=== PATIENT | male | born 1950 | race Caucasian/White ===

== ENCOUNTER 2016-12-30 13:38 | Emergency (ER) | payer MEDICAID ==
--- NOTE | 2016-12-30 15:51 | Emergency Department Record ---
Anxiety - General Chief Complaint: Anxiety Stated Complaint: TIMO AND HAS ANXIETY Time Seen by Provider: 12/30/16 14:33 Source: Patient, RN notes reviewed Mode of Arrival: Wheelchair - History of Present Illness Initial Comments: sob and anxious and his brother yesterday and hr ran out of ativan and about one month ago and he took one pill about 3 days ago and he was able to sleep. Home oxygen at two liters per minutes. He has been using the albuterol/ Ipratropium about two times a day. No fever or chiles and coughing nonproductive. patient said pulmonary would not give him meds for anxiety and cancer said the same thine one week ago. Pulmonary Dr. Mays . Oncology Dr. Paulino Onset/Timin -: Week(s) Symptoms: Dyspnea Place: Home Previous History of Same: Yes Severity: Moderate Quality: Constant Provoking factors: Emotional stress, Recent /illness of family member Improves With: Nothing Worsens With: Nothing - Related Data Home Medications: Home Medications Medication Instructions Recorded Confirmed Last Taken Buspirone HCl 15 mg PO BID 09/20/16 12/30/16 12/30/16 Isosorbide Mononitrate [Imdur] 30 mg PO DAILY 09/20/16 12/30/16 12/30/16 Metoprolol Succinate [Toprol Xl] 25 mg PO DAILY 09/20/16 12/30/16 12/30/16 Previous Rx's Medication Instructions Recorded Albuterol Sulfate 0.083% [Neb] 2.5 mg INH RESP.Q4H.WA PRN #120 09/27/16 nebulization solution Ipratropium Br. 0.02% Neb 0.5 mg NEB RESP.Q4H.WA #120 ml 09/27/16 [Atrovent 0.02% Neb] Azithromycin 500 mg PO DAILY #7 tablet 12/30/16 Lorazepam [Ativan] 0.5 mg PO BID #20 tablet 12/30/16 Prednisone [Prednisone 10Mg] 10 mg PO ASDIR #30 tab 12/30/16 Allergies/Adverse Reactions: Allergies Allergy/AdvReac Type Severity Reaction Status Date / Time No Known Allergies Allergy PT UNSURE Verified 12/30/16 13:43 OF REACTION Travel Screening - Travel/Exposure Within Last 30 Days Have you traveled within the last 30 days?: No - Travel/Exposure Within Last Year Have you traveled outside the [place] in the last year?: No - Additonal Travel Details Have you been exposed to anyone with a communicable illness?: No - Travel Symptoms Symptom Screening: None Review of Systems Reviewed: No additional complaints except as noted below Constitutional: Reports: As per HPI. Denies: Chills, Fever, Malaise, Night sweats, Weakness, Weight change Eyes: Reports: As per HPI. Denies: Eye discharge, Eye pain, Photophobia, Vision change ENT: Reports: As per HPI. Denies: Congestion, Dental pain, Ear pain, Epistaxis , Hearing loss, Throat pain Respiratory: Reports: As per HPI, Cough. Denies: Dyspnea, Hemoptysis, Stridor, Wheezes Cardiovascular: Reports: As per HPI. Denies: Arrhythmia, Chest pain, Dyspnea on exertion, Edema, Murmurs, Orthopnea, Palpitations, Paroxysmal nocturnal dyspnea, Rheumatic Fever, Syncope Endocrine: Reports: As per HPI. Denies: Fatigue, Heat or cold intolerance, Polydipsia, Polyuria Gastrointestinal: Reports: As per HPI. Denies: Abdominal pain, Constipation, Diarrhea, Hematemesis, Hematochezia, Melena, Nausea, Vomiting Genitourinary: Reports: As per HPI. Denies: Dysuria, Frequency, Hematuria, Incontinence, Retention, Testicular pain, Testicular mass, Urgency Musculoskeletal: Reports: As per HPI. Denies: Arthralgia, Back pain, Gout, Joint swelling, Myalgia, Neck pain Skin: Reports: As per HPI. Denies: Bruising, Change in color, Change in hair/ nails, Lesions, Pruritus, Rash Neurological: Reports: As per HPI. Denies: Abnormal gait, Confusion, Headache, Numbness, Paresthesias, Seizure, Tingling, Tremors, Vertigo, Weakness Psychiatric: Reports: As per HPI, Anxiety. Denies: Auditory hallucinations, Depression, Homicidal thoughts, Suicidal thoughts, Visual hallucinations Hematological/Lymphatic: Reports: As per HPI. Denies: Anemia, Blood Clots, Easy bleeding, Easy bruising, Swollen glands Past Medical History - SOCIAL HISTORY Smoking Status: Former smoker Alcohol Use: None Drug Use Detail:: Marijuana - RESPIRATORY Hx Respiratory Disorders: Yes Hx Asthma: Yes Hx Bronchitis: Yes Hx COPD: Yes Hx Dyspnea: Yes Hx Pneumonia: Yes Hx Pulmonary Embolism: No Hx Sleep Apnea: No Hx Tuberculosis: No - CARDIOVASCULAR Hx Cardio Disorders: Yes Hx Abnormal EKG: No Hx Cardiac Cath: No Hx Chest Pain: Yes Hx CHF: No Hx Deep Vein Thrombosis: No Hx Edema: No Hx Heart Attack: No Hx Hypertension: Yes Hx Hypotension: No Hx Irregular Heartbeat: No Hx Palpitations: Yes Hx Pacemaker/Defib: No Hx Vascular Disease: No - NEURO Hx Neuro Disorders: No - GI Hx GI Disorders: Yes Hx Abdominal Pain: Yes (pain in side when coughing) Hx Celiac Disease: No Hx Crohn's Disease: No Hx Diverticulitis: Yes Hx GI Bleed: No Hx Reflux: No Hx Hepatitis/Jaundice: No Hx Hiatal Hernia: No Hx Irritable Bowel: No Hx Liver Disease: No Hx Nausea/Vomiting: No Hx Obstructive Bowel: No Hx Pancreatitis: No 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) Hx Ulcer: No Hx Wt Loss/Wt Gain: No - Hx Genitourinary Disorders: Yes Hx Bladder Problem: No Hx Dialysis: No Hx Kidney Stones: No Hx Prostate Problems: Yes Hx Renal Disease: No Hx UTI: No - ENDOCRINE Hx Endocrine Disorders: No - MUSCULOSKELETAL Hx Musculoskeletal Disorders: Yes Hx Arthritis: Yes Hx Back Injury: No Hx Fibromyalgia: No Hx Gout: No Hx Musculoskeletal Disease: No Hx Osteoporosis: No - PSYCH Hx Psych Problems: No - HEMATOLOGY/ONCOLOGY Hx Hematology/Oncology Disorders: Yes Hx Anemia: No Hx Blood Disorders: No Hx Bruising: No Hx Cancer: Yes (lung) Hx Chemotherapy: No Hx Radiation Therapy: No Hx Clotting Problems: No Hx Sickle Cell Disease: No Hx Unexplained Bleeding: No Hx Blood Transfusions: No Hx Blood Transfusion Reaction: No Family Medical History Any Significant Family History?: Yes Hx Alcohol Use: Father, Mother, Grandparents Hx Cancer: Father, Brother/Sister Hx Depression: Father Hx Diabetes: Mother, Brother/Sister Hx Heart Disease: Mother, Brother/Sister Hx HTN: Mother, Brother/Sister Hx Resp Disorders: Father, Mother Physical Exam - General General Appearance: Alert, Oriented x3, Cooperative, No acute distress - Head Head exam: Normal inspection - Eye Eye exam: Normal appearance, PERRL Pupils: Normal accommodation - ENT ENT exam: Normal exam, Mucous membranes moist, Normal external ear exam, Normal orophraynx, TM's normal bilaterally Ear exam: Normal external inspection. negative: External canal tenderness Nasal Exam: Normal inspection. negative: Discharge, Sinus tenderness Mouth exam: Normal external inspection, Tongue normal Teeth exam: Normal inspection. negative: Dental caries Throat exam: Normal inspection. negative: Tonsillar erythema, Tonsillar exudate - Neck Neck exam: Normal inspection, Full ROM. negative: Tenderness - Respiratory Respiratory exam: Normal lung sounds bilaterally, Wheezes. negative: Respiratory distress - Cardiovascular Cardiovascular Exam: Regular rate, Normal rhythm, Normal heart sounds - GI/Abdominal GI/Abdominal exam: Soft, Normal bowel sounds. negative: Tenderness - Rectal Rectal exam: Deferred - exam: Deferred - Extremities Extremities exam: Normal inspection, Full ROM, Normal capillary refill. negative: Tenderness - Back Back exam: Reports: Normal inspection, Full ROM. Denies: Muscle spasm, Rash noted, Tenderness - Neurological Neurological exam: Alert, Normal gait, Oriented X3, Reflexes normal - Psychiatric Psychiatric exam: Normal affect, Normal mood - Skin Skin exam: Dry, Intact, Normal color, Warm Course Vital Signs 12/30/16 12/30/16 13:45 15:17 Temperature 98.3 F Pulse Rate 85 Pulse Rate [ 79 Pulse Ox Probe] Respiratory 28 H 24 Rate Blood Pressure 141/103 Blood Pressure 120/78 [Left Arm] Pulse Ox 99 98 - Reevaluation(s) Reevaluation #1: patient is feeling beter 12/30/16 18:00 Medical Decision Making - Lab Data Result diagrams: 12/30/16 16:20 12/30/16 16:20 Disposition Clinical Impression: COPD with exacerbation, Bronchitis, Anxiety Disposition: Home, Self-Care Condition: (1) Good Instructions: Chronic Obstructive Pulmonary Disease (ED) Additional Instructions: follow up with family in one week Prescriptions: Lorazepam [Ativan] 0.5 mg PO BID #20 tablet Azithromycin 500 mg PO DAILY #7 tablet Prednisone [Prednisone 10Mg] 10 mg PO ASDIR #30 tab Forms: Patient Portal Access Time of Disposition: 18:00
[2016-12-30] MEDS ORDERED: LORAZEPAM 0.5 MG TABLET PO ONE (15:55)
[2016-12-30] MEDS ORDERED: METHYLPREDNISOLONE PF 125MG/VIAL IVP ONE (15:55)
[2016-12-30] MEDS ORDERED: IPRATROPIUM/ALBUTEROL (0.5MG/3MG) NEB INH ONE (15:55)
[2016-12-30 16:29] LABS: BASO % 0.5 % (0-6); EOS % 3.4 % (0-6); GRAN % 65.5 % (47-80); HEMOGLOBIN 13.9 gm/dl (14.0-18.0); LYMPH % 20.5 % (16-45); MEAN CELL VOLUME 97.7 fl (81-97); MEAN CORPUSCULAR HGB CONC 32.3 g/dl (32-36); MEAN PLATELET VOLUME 9.4 fl (7.4-10.4); MONO % 10.1 % (0-9); PLATELET COUNT 293 K/uL (130-400); RED CELL DISTRIBUTION WIDTH 12.6 % (11.5-14.5); WHITE BLOOD COUNT W/O DIFF 8.4 K/uL (4.2-12.2)
[2016-12-30 16:30] LABS: MEAN CORPUSCULAR HEMOGLOBIN 31.5 pg (27-33)
[2016-12-30 16:44] LABS: ANION GAP 12.4 (7-16); BLOOD UREA NITROGEN 12 mg/dL (9-20); CARBON DIOXIDE 28.6 mmol/L (22-30); CREATININE 0.8 mg/dL (0.66-1.25); EST GLOMERULAR FILTRATION RATE > 60 ml/min; GLUCOSE,RANDOM 92 mg/dL (70-110)
== END 2016-12-30 18:23 | disposition home or self-care (01) ==
LOC: ER 13:38
DX: J44.1 Chronic obstructive pulmonary disease with (acute) exacerbation (principal); J20.9 Acute bronchitis, unspecified; J44.0 Chronic obstructive pulmonary disease with (acute) lower respiratory infection; I10 Essential (primary) hypertension; Z87.891 Personal history of nicotine dependence; F41.1 Generalized anxiety disorder; F43.0 Acute stress reaction
CPT/HCPCS: 71020; 80048; 85025; 94640; 96374; 99284; J2930